=== PATIENT | female | born 1950 | race Caucasian/White ===

== ENCOUNTER → 2017-02-15 | Outpatient (CLI) | payer BC ==
--- NOTE | 2017-02-15 10:13 | RADRPT ---
PROCEDURE: XR bilateral knees. CLINICAL INDICATION: Knee pain TECHNIQUE: AP weightbearing, PA weightbearing, lateral weightbearing and sunrise views of each kne e are available for review. COMPARISON: None available FINDINGS: Right knee: There is mild osteoarthrosis involving the right medial tibial femoral compartment and patellofemora l compartment .This is associated with joint space narrowing and osteophytosis. There are multiple c alcified loose bodies in the posterior midline joint. Left knee: There is mild osteoarthrosis involving the left medial tibial femoral compartment and patellofemoral compartment. This is associated with joint space narrowing and osteophytosis. There is otherwise normal mineralization, architecture and alignment. No fractures are identified. No osseous lesions are identified. The soft tissues are unremarkable. IMPRESSION: Mild osteoarthrosis involving the right medial tibial femoral compartment and patellofemoral compart ment Mild osteoarthrosis involving the left medial tibial femoral compartment and patellofemoral compartm ent. Multiple right posterior calcified loose bodies RPTAT: [facility] .Roman Shannon MD, MD Date Time Electronically viewed and signed by .Roman Shannon MD, on 02/15/2017 10:13 .B/
== END | disposition home or self-care (01) ==
LOC: HKI 09:05
PROVIDERS: ATTEND Orthopaedic Surgery
DX: S83.232A Complex tear of medial meniscus, current injury, left knee, initial encounter (principal); S83.272A Complex tear of lateral meniscus, current injury, left knee, initial encounter; K21.9 Gastro-esophageal reflux disease without esophagitis; K22.70 Barrett's esophagus without dysplasia; X58.XXXA Exposure to other specified factors, initial encounter; M17.0 Bilateral primary osteoarthritis of knee
CPT/HCPCS: G0463